=== PATIENT | male | born 1945 | race Hispanic/Latino ===

== ENCOUNTER 2018-02-28 10:41 | Inpatient (IN) | payer MEDICARE ==
[2018-02-28] VITALS (10 sets, daily range): BP systolic 131–190; BP diastolic 61–99
[~2018-02-28] VITALS: Ht 177.8 cm; Wt 102.5 kg
[~2018-02-28 10:41] MED LIST: ASPI-555 PO; CLIN300C9 PO; CLON0.1T PO; FENO145T37 PO; GLIP10TA9 PO; ISOS60TA4 PO; METO-409 PO; PRAS10TA6 PO; TAMS0.4C32 PO; TRAM50TA4 PO
[2018-02-28] MEDS ORDERED: LIDOCAINE HCL 2% 20ML ONE (13:09)
[2018-02-28] MEDS ORDERED: IOHEXOL-350 50ML VIAL IV ONE (13:09)
[2018-02-28] MEDS ORDERED: IOHEXOL 350 MG/ML 100ML INFUS..BTL IV ONE (13:09)
[2018-02-28] MEDS ORDERED: HEPARIN SODIUM 1000UNIT/ML 10ML VIAL ONE (13:09)
[2018-02-28] MEDS ORDERED: ASPIRIN 81MG TAB.CHEW ONE (14:31)
[2018-02-28] MEDS ORDERED: PRASUGREL HCL 10 MG TABLET ONE (14:31)
[2018-02-28] MEDS ORDERED: SODIUM CHLORIDE 0.9% 1000ML 1,000 ML IV SCH (14:51)
[2018-02-28] MEDS ORDERED: PHARMACY COMMUNICATION MISC SCH (15:00)
[2018-02-28] MEDS ORDERED: ONDANSETRON HCL 4 MG/2 ML VIAL IVP PRN (15:00)
[2018-02-28] MEDS ORDERED: GLUCAGON 1MG KIT 1 MG ML IM PRN (15:00)
[2018-02-28] MEDS ORDERED: DEXTROSE 50%-WATER 50 ML DISP.SYRIN IV PRN (15:00)
[2018-02-28] MEDS ORDERED: ALPRAZOLAM 0.25 MG TABLET PO PRN (15:00)
[2018-02-28] MEDS ORDERED: NITROGLYCERIN 0.4 MG SL TAB SL PRN (15:00)
[2018-02-28] MEDS ORDERED: CEFTRIAXONE SODIUM 2 GM VIAL IVP SCH (15:00)
[2018-02-28] MEDS ORDERED: ONDANSETRON HCL 4 MG/2 ML VIAL IVP SCH (15:00)
[2018-02-28] MEDS: CEFTRIAXONE SODIUM 1 GM IVP SCH (15:48)
[2018-02-28] MEDS: INSULIN HUMULIN R 100 UNIT/ML 3ML SQ SCH ×2 (16:30→20:23)
[2018-02-28] MEDS: METOCLOPRAMIDE 10 MG TABLET PO SCH ×2 (16:37→21:06)
[2018-02-28] MEDS: GLIPIZIDE 5 MG TABLET PO SCH (16:37)
[2018-02-28] MEDS ORDERED: ATORVASTATIN CALCIUM 10 MG TABLET PO SCH (21:00)
[2018-02-28] MEDS ORDERED: CLONIDINE HCL 0.1 MG TABLET PO SCH (21:00)
[2018-02-28] MEDS: RANOLAZINE 500 MG TAB.SR.12H PO SCH (21:06)
[2018-02-28] MEDS: METOPROLOL TARTRATE 50 MG TAB PO SCH (21:06)
[2018-02-28] MEDS ORDERED: TAMSULOSIN HCL 0.4 MG CAP.ER.24H PO SCH (21:45)
[2018-03-01] MEDS: CEFTRIAXONE SODIUM 1 GM IVP SCH (03:29)
[2018-03-01 04:21] VITALS: BP 147/72
[2018-03-01 04:38] LABS: HEMATOCRIT 39.8 % (42-54); MEAN CORPUSCULAR HEMOGLOBIN 28.5 pg (27.0-33.0); MEAN CORPUSCULAR HGB CONC 33.5 g/dL (32.0-36.0); MEAN CORPUSCULAR VOLUME 84.9 fL (79-99); PLATELET COUNT (AUTO) 200 K/uL (130-400); RED BLOOD CELL COUNT(AUTO) 4.68 MIL/uL (4.50-6.20); RED CELL DISTRIBUTION WIDTH 14.2 % (11.0-15.5); WHITE BLOOD COUNT (AUTO) 8.4 K/uL (4.8-10.8)
[2018-03-01 04:59] LABS: BILIRUBIN,TOTAL 0.4 mg/dL (0.2-1.0); CREATININE 1.5 mg/dL (0.5-1.5); POTASSIUM 3.6 mmol/L (3.5-5.1); TOTAL PROTEIN, SERUM 7.2 g/dL (6.0-8.3)
[2018-03-01] MEDS: INSULIN HUMULIN R 100 UNIT/ML 3ML SQ SCH ×2 (06:05→12:40)
[2018-03-01 07:30] VITALS: BP 166/75
[2018-03-01] MEDS ORDERED: ISOS60TA4 PO (08:31)
[2018-03-01] MEDS ORDERED: ALPR1TAB7 PO (08:31)
[2018-03-01] MEDS ORDERED: CLON0.2T PO (08:31)
[2018-03-01] MEDS ORDERED: RANO500T2 PO (08:31)
[2018-03-01] MEDS ORDERED: ATOR10TA69 PO (08:40)
[2018-03-01] MEDS ORDERED: PRAS10TA9 PO (08:40)
[2018-03-01] MEDS ORDERED: FENOFIBRATE NANOCRYSTALLIZED 145 MG TAB PO SCH (09:00)
[2018-03-01] MEDS ORDERED: PRASUGREL HCL 10 MG TABLET PO SCH (09:00)
[2018-03-01] MEDS ORDERED: ASPIRIN 81MG TAB.CHEW PO SCH (09:00)
[2018-03-01] MEDS ORDERED: PANTOPRAZOLE SODIUM 40 MG TABLET.DR PO SCH (09:00)
[2018-03-01] MEDS ORDERED: TAMSULOSIN HCL 0.4 MG CAP.ER.24H PO SCH ×2 (09:00→21:00)
[2018-03-01] MEDS: RANOLAZINE 500 MG TAB.SR.12H PO SCH (09:07)
[2018-03-01] MEDS: METOPROLOL TARTRATE 50 MG TAB PO SCH (09:07)
[2018-03-01] MEDS: METOCLOPRAMIDE 10 MG TABLET PO SCH ×2 (09:10→12:39)
[2018-03-01] MEDS: GLIPIZIDE 5 MG TABLET PO SCH (09:11)
[2018-03-01 11:02] VITALS: BP 111/69
== END 2018-03-01 14:09 | disposition home or self-care (01) | DRG 246 ==
LOC: 2DH 12:21
PROVIDERS: ADMIT Internal Medicine; ATTEND Internal Medicine
PROC: 027034Z Dilation of Coronary Artery, One Artery with Drug-eluting Intraluminal Device, Percutaneous Approach (ICD-10-PCS; principal; 2018-02-28)
PROC: 4A023N7 Measurement of Cardiac Sampling and Pressure, Left Heart, Percutaneous Approach (ICD-10-PCS; 2018-02-28)
PROC: B2111ZZ Fluoroscopy of Multiple Coronary Arteries using Low Osmolar Contrast (ICD-10-PCS; 2018-02-28)
PROC: B2151ZZ Fluoroscopy of Left Heart using Low Osmolar Contrast (ICD-10-PCS; 2018-02-28)
PROC: B2181ZZ Fluoroscopy of Left Internal Mammary Bypass Graft using Low Osmolar Contrast (ICD-10-PCS; 2018-02-28)
PROC: B2121ZZ Fluoroscopy of Single Coronary Artery Bypass Graft using Low Osmolar Contrast (ICD-10-PCS; 2018-02-28)
DX: I25.110 Atherosclerotic heart disease of native coronary artery with unstable angina pectoris (principal); I50.31 Acute diastolic (congestive) heart failure; E78.2 Mixed hyperlipidemia; E11.9 Type 2 diabetes mellitus without complications; I25.82 Chronic total occlusion of coronary artery; N40.0 Benign prostatic hyperplasia without lower urinary tract symptoms; Z87.442 Personal history of urinary calculi; Z95.1 Presence of aortocoronary bypass graft; Z88.8 Allergy status to other drugs, medicaments and biological substances; Z80.3 Family history of malignant neoplasm of breast; Z80.0 Family history of malignant neoplasm of digestive organs; Z83.3 Family history of diabetes mellitus; Z82.49 Family history of ischemic heart disease and other diseases of the circulatory system; Z82.0 Family history of epilepsy and other diseases of the nervous system; I11.0 Hypertensive heart disease with heart failure
CPT/HCPCS: 36415; 80053; 80061; 82948; 85027; 85730; 93005; 93459; A4218; C1725; C1769; C1887; C1894; C9600; G0378; J0696; J1644; J1815; J3490; Q9967

== ENCOUNTER 2018-05-08 09:09 | Emergency (ER) | payer MEDICARE ==
[~2018-05-08 09:09] MED LIST changes: +ALPR1TAB7 PO; +ATOR10TA69 PO; -CLIN300C9 PO; -CLON0.1T PO; +CLON0.2T PO; +PRAS10TA9 PO; +RANO500T2 PO
[2018-05-08 09:50] LABS: BILIRUBIN,URINE Small (NEGATIVE); COLOR,URINE Dark Yellow (YELLOW); GLUCOSE, URINE (UA) Negative (NEGATIVE); KETONES,URINE Negative (NEGATIVE); LEUKOCYTE ESTERASE ,URINE Large (NEGATIVE); NITRATE,URINE Negative (NEGATIVE); OCCULT BLOOD,URINE Large (NEGATIVE); PROTEIN,URINE POS 2+ (NEGATIVE)
[2018-05-08 09:56] LABS: APPEARANCE,URINE SLIGHTLY CLOUDY (CLEAR)
[2018-05-08 10:00] LABS: BACTERIA,URINE Few /HPF (None Seen); RBC,URINE >100 /HPF (0-1); WBC,URINE 51-100 /HPF (0-1)
[2018-05-08 10:01] LABS: SQUAMOUS EPITHELIAL CELL,UR Rare /HPF (0-2)
[2018-05-08] MEDS ORDERED: LIDOCAINE HCL-MPF 1% 2ML VIAL ONE (10:04)
[2018-05-08] MEDS ORDERED: CEFTRIAXONE SODIUM 1 GM ONE (10:04)
[2018-05-08] MEDS ORDERED: IPRATROPIUM/ALBUTEROL SULFATE 3 ML SOLUTION IH ONE (10:08)
== END 2018-05-08 12:00 | disposition home or self-care (01) ==
LOC: EDH 09:09
DX: N39.0 Urinary tract infection, site not specified (principal); E11.9 Type 2 diabetes mellitus without complications; I10 Essential (primary) hypertension; Z79.4 Long term (current) use of insulin; Z87.442 Personal history of urinary calculi; Z90.49 Acquired absence of other specified parts of digestive tract; Z88.1 Allergy status to other antibiotic agents; Z88.6 Allergy status to analgesic agent
CPT/HCPCS: 71046; 81001; 87804 ×2; 94640; 96372; 99284; J0696; J3490

== ENCOUNTER → 2018-07-12 | Outpatient (CLI) | payer MEDICARE | END | disposition home or self-care (01) | LOC: RAH 08:23 | PROVIDERS: ATTEND Urology | DX: N20.0 Calculus of kidney (principal); N32.89 Other specified disorders of bladder; Z90.49 Acquired absence of other specified parts of digestive tract | CPT/HCPCS: 74176 ==